=== PATIENT | female | born 1990 | race Caucasian/White ===

== ENCOUNTER 2023-07-05 08:18 | Emergency (ER) | payer BC ==
[2023-07-05 08:46] VITALS: O2SAT 100
[2023-07-05 08:50] LABS: BILIRUBIN,URINE NEGATIVE (NEGATIVE); GLUCOSE, URINE (UA) NEGATIVE (NEGATIVE); KETONES,URINE (UA) NEGATIVE (NEGATIVE); LEUKOCYTE ESTERASE, URINE NEGATIVE (NEGATIVE); NITRITE,URINE NEGATIVE (NEGATIVE); OCCULT BLOOD,URINE NEGATIVE (NEGATIVE); PROTEIN,URINE NEGATIVE (NEGATIVE); UROBILINOGEN,URINE 0.2 (NORMAL) E.U./dL (NORMAL)
[2023-07-05 08:51] LABS: BASOPHILS % (AUTO) 0.5 %; EOSINOPHILS # (AUTO) 0.3 10^3/uL (0.0-0.7); EOSINOPHILS % (AUTO) 3.3 %; HCT - HEMATOCRIT 41.5 % (37.0-47.0); HGB - HEMOGLOBIN 13.2 g/dL (12.0-16.0); LYMPHOCYTES # (AUTO) 1.4 10^3/uL (1.5-3.5); LYMPHOCYTES % (AUTO) 15.8 %; MEAN CORPUSCULAR HGB CONC 31.8 g/dL (32.0-36.0); MEAN CORPUSCULAR VOLUME 87.9 fL (81.0-99.0); MEAN PLATELET VOLUME 10.7 fL (7.9-10.8); MONOCYTES # (AUTO) 0.8 10^3/uL (0.0-1.0); MONOCYTES % (AUTO) 8.7 %; NEUTROPHILS # (AUTO) 6.3 10^3/uL (1.5-6.6); NEUTROPHILS % (AUTO) 71.5 %; PLT - PLATELET COUNT 277 10^3/uL (130-450); RED BLOOD COUNT 4.72 10^6/uL (4.20-5.40); RED CELL DISTRIBUTION WIDTH 12.7 % (12.0-15.0); WHITE BLOOD COUNT 8.9 x10^3/uL (4.8-10.8)
[2023-07-05 08:54] LABS: CLARITY,URINE CLEAR (CLEAR); HCG UR QUAL NEGATIVE
[2023-07-05 09:06] LABS: ALBUMIN 4.3 g/dL (3.2-5.5); ALBUMIN/GLOBULIN RATIO 1.3 (1.0-2.2); BILIRUBIN,TOTAL 0.4 mg/dL (0.2-1.0); CALCIUM 9.7 mg/dL (8.5-10.3); CREATININE 0.9 mg/dL (0.6-1.3); POTASSIUM 4.3 mmol/L (3.5-4.5); TOTAL PROTEIN 7.5 g/dL (6.4-8.9)
[2023-07-05] MEDS ORDERED: iohexoL-300 100 ML VIAL ONE (09:34)
--- NOTE | 2023-07-05 09:37 | ED Physician Documentation ---
PD HPI ABD PAIN - Stated complaint Stated Complaint: ABD PX - Chief complaint Chief Complaint: Abd Pain - History obtained from History obtained from: Patient, Family ( Gabriel) - History of Present Illness Timing - onset: Last night Timing - duration: Hours Timing - details: Abrupt onset, Still present Quality: Cramping, Sharp, Pain Location: RLQ, Suprapubic Improved by: Laying still Worsened by: Moving, Position, Palpation Associated symptoms: Constipation, Hematochezia Similar symptoms before: Has not had sx before Recently seen: Not recently seen - Additional information Additional information: Lola Estrada is a 30-year-old female who was feeling well yesterday when she felt that she needed to go to the bathroom last night she had a hard bowel movement that was painful as it passed causing sweats and nausea. She had further stool out with 3 further bowel movements and no blood last night. This morning she had the urge to defecate and had a blood clot which she brings a picture of. She continues to have some rectal pain and lower abdominal cramping pain. She has not had these pains previously. She does not tend to get constipated. She does indicate that she went 2 days without a bowel movement. She arrived to the emergency department today with some mild abdominal cramping that she states she would not have come to the emergency department if she had not found the blood clot that she passed with a bowel movement this morning. She continues to have a feeling of rectal urgency. Review of Systems Constitutional: reports: Sweats. denies: Fever, Chills, Myalgias Eyes: denies: Decreased vision Ears: denies: Ear pain Nose: denies: Rhinorrhea / runny nose, Congestion Throat: denies: Sore throat Cardiac: denies: Chest pain / pressure Respiratory: denies: Dyspnea, Cough GI: reports: Abdominal Pain, Nausea, Constipation, Bloody / black stool. denies: Vomiting : denies: Dysuria, Frequency Skin: denies: Rash Musculoskeletal: denies: Neck pain, Back pain, Extremity pain PD PAST MEDICAL HISTORY - Past Medical History Past Medical History: Yes Cardiovascular: None Respiratory: None Neuro: None Endocrine/Autoimmune: None GI: None IT ENGINEER: None : None HEENT: None Psych: None Musculoskeletal: None Derm: None - Past Surgical History Past Surgical History: No - Present Medications Home Medications: Ambulatory Orders Medication Instructions Recorded Confirmed No Known Home Medications 07/05/23 07/05/23 - Allergies Allergies/Adverse Reactions: Allergies Allergy/AdvReac Type Severity Reaction Status Date / Time tramadol AdvReac Nausea Verified 07/05/23 08:37 - Social History Does the pt smoke?: No Smoking Status: Never smoker Does the pt drink ETOH?: No Does the pt have substance abuse?: No - Immunizations Immunizations are current?: Yes - POLST Patient has POLST: No PD ED PE NORMAL - Vitals Vital signs reviewed: Yes (Hypertensive diastolic) - General General: Alert and oriented X 3, No acute distress, Well developed/nourished - HEENT HEENT: Atraumatic, PERRL, EOMI - Respiratory Respiratory: No respiratory distress - Abdomen Abdomen: Normal bowel sounds, Soft, Non distended, No organomegaly, Other (Mild right lower quadrant tenderness to deep palpation no referred tenderness.) - Rectal Rectal: Other (With family as a booster operator the rectum was examined there were no external hemorrhoids no appreciable internal hemorrhoids there is some blood on the glove. There is no specific tenderness to palpation of the rectal vault or the anus.) - Back Back: No CVA TTP, No spinal TTP - Derm Derm: Normal color, Warm and dry, No rash - Extremities Extremities: No deformity, No edema - Neuro Neuro: Alert and oriented X 3, electrical engineering manager 2-12 intact, No motor deficit, No sensory deficit, Normal speech Eye Opening: Spontaneous Motor: Obeys Commands Verbal: Oriented GCS Score: 15 - Psych Psych: Normal mood, Normal affect Results - Vitals Vitals: Vital Signs - 24 hr 07/05/23 07/05/23 07/05/23 08:27 10:36 12:36 Temperature 36.8 C Heart Rate 82 79 Respiratory 18 16 16 Rate Blood Pressure 133/97 H 131/80 H 131/78 H O2 Saturation 100 100 100 Oxygen O2 Source Nasal cannula - Labs Labs: Laboratory Tests 07/05/23 07/05/23 07/05/23 08:30 08:45 08:45 WBC 8.9 RBC 4.72 Hgb 13.2 Hct 41.5 MCV 87.9 MCH 28.0 MCHC 31.8 L RDW 12.7 Plt Count 277 MPV 10.7 Neut # (Auto) 6.3 Lymph # (Auto) 1.4 L [place] # (Auto) 0.8 Eos # (Auto) 0.3 Baso # (Auto) 0.0 Absolute Nucleated RBC 0.00 Nucleated RBC % 0.0 Sodium 136 Potassium 4.3 Chloride 105 Carbon Dioxide 26 Anion Gap 5.0 L BUN 11 Creatinine 0.9 Estimated GFR (MDRD) 73 L Glucose 106 H Calcium 9.7 Total Bilirubin 0.4 AST 17 ALT 28 Alkaline Phosphatase 71 Total Protein 7.5 Albumin 4.3 Globulin 3.2 Albumin/Globulin Ratio 1.3 Lipase 36 Urine Color YELLOW Urine Clarity CLEAR Urine pH 6.0 Ur Specific [place] 1.020 Urine Protein NEGATIVE Urine Glucose (UA) NEGATIVE Urine Ketones NEGATIVE Urine Occult Blood NEGATIVE Urine Nitrite NEGATIVE Urine Bilirubin NEGATIVE Urine Urobilinogen 0.2 (NORMAL) Ur Leukocyte Esterase NEGATIVE Ur Microscopic Review NOT INDICATED Urine Culture Comments NOT INDICATED Urine HCG, Qual NEGATIVE PD Medical Decision Making - ED course Complexity details: reviewed old records, reviewed results, re-evaluated patient, considered differential, d/w patient, d/w family Reviewed Lab Results: We reviewed a complete blood count showing a normal white blood cell count normal hemoglobin hematocrit and platelets chemistries also showed normal electrolytes normal kidney and liver function urinalysis unremarkable and negative hCG. I interpreted these studies to indicate there is no significant blood loss associated with this and there were were no other contributing findings to the blood work. ED course: 32-year-old female with abdominal pain and rectal bleeding after passing a hard stool has a rectal exam without specific findings with the exception of some blood on the glove. There is no palpable mass no significant internal or external hemorrhoid. We obtained a blood count which was normal and we investigated further with CT scan of the abdomen pelvis with contrast. This study was essentially normal. This does help with elimination of an obvious finding such as colon CA, diverticulitis, inflammatory bowel disease, appendicitis, intussuseption etc. We did find significant stool in the right colon and I explained this to the patient indicating she would need to take some milk of magnesia for resolution of the right-sided constipation. I suspect her symptoms are related to passage of hard stool temporary bleeding and now resolution of symptoms. She is encouraged to follow-up with her primary especially if she has continued bleeding as CT scan is not adequate to rule out colon or rectal CA. Departure - Departure Disposition: 01 Home, Self Care Clinical Impression: Lower GI bleed Constipation Qualifiers: Constipation type: unspecified constipation type Qualified Code(s): K59.00 - Constipation, unspecified Condition: Stable Instructions: ED Constipation, ED Hematochezia Stable Follow-Up: [facility] [Provider Group] Comments: oLla, today it looks like the constipation you had caused a problem with bleeding in the colon and this appears to have resolved. There is no change in your blood count and our expectation is resolution of the bleeding and pain. There is additional right-sided constipation that should be relieved. My recommendation for this is to take some milk of magnesia when you return home and expect results within about 6 hours. If you do not have results take a second dose. After you are cleaned out my recommendation is to take MiraLAX daily for at least 2 weeks to retrain your colon. If you have further issues with bleeding a follow-up with the primary care doctor is indicated and I have given you the name of a clinic in [place]. We are expecting the bleeding to resolve. Forms: PCP List Discharge Date/Time: 07/05/23 12:54
[2023-07-05] MEDS: iohexoL-300 100 ML VIAL IVP ONE (09:59)
[2023-07-05 13:01] VITALS: BP 131/78
--- NOTE | 2023-07-05 16:16 | CT Report ---
PROCEDURE: Abdomen/Pelvis W INDICATIONS: rectal pain/bleeding no hemorrhoids CONTRAST: 100ml omni 300 TECHNIQUE: After the administration of intravenous contrast, a CT scan of the abdomen and pelvis was performed. Images were recorded and evaluated at appropriate window settings. Reformats: coronal and sagittal. F or radiation dose reduction, the following was used: automated exposure control, adjustment of mA and /or kV according to patient size. COMPARISON: None. FINDINGS: Image quality: Diagnostic. Lower chest: Unremarkable. Liver: No solid mass. Gallbladder and biliary tree: No radiopaque stones or wall thickening. No biliary dilation. Spleen: No splenomegaly. Pancreas: No pancreatic ductal dilation. Adrenals: No adrenal nodule. Kidneys and ureters: No hydronephrosis. No renal cystic lesion which requires follow up. No solid mas s. Stomach, bowel and peritoneum: No bowel distension. No pathologic free fluid. Lymph nodes: No central or retroperitoneal adenopathy. Vessels: No infrarenal aortic aneurysm. PELVIS Reproductive organs: Unremarkable. Bladder: No abnormal wall thickening, accounting for underdistention. Pelvic lymph nodes: No pelvic adenopathy by size criteria. Bones: No aggressive osseous abnormality. Other: No significant ventral or inguinal hernia. IMPRESSION: No acute findings within the abdomen or pelvis to explain patient's symptoms. Reviewed by: Herman Ferro MD on 07/05/2023 9:23 AM [facility] Approved by: Herman Ferro MD on 07/05/2023 9:23 AM LUZMAR[facility] Station ID: [id number]
== END 2023-07-05 12:54 | disposition home or self-care (01) ==
LOC: ED 08:18
DX: K92.2 Gastrointestinal hemorrhage, unspecified (principal); K59.00 Constipation, unspecified
CPT/HCPCS: 36415; 74177; 80053; 81003; 81025; 83690; 85025; 99283; 99284; Q9967; 81001; 87086